=== PATIENT | female | born 1955 | race Caucasian/White ===

== ENCOUNTER 2019-02-21 11:34 | Emergency (ER) | payer OTHER ==
[~2019-02-21 11:34] MED LIST: IBU600 PO; LISI20TA29 PO; METF-450 PO; NO ROUTINE MEDS
--- NOTE | 2019-02-21 11:43 | ER Report ---
History and Physical Time Seen By MD: 11:43 Hx. of Stated Complaint: SHARP PAIN IN EPIGASTRIC AREA THAT LASTS ON MIN THEN SUBSIDES. ACCOMPANIED WITH NAUSEA HPI/ROS CHIEF COMPLAINT: Abdominal pain HISTORY OF PRESENT ILLNESS: 63-year-old female patient presents to emergency room with complaint of abdominal pain. Patient states the pain seems to be in the upper abdomen. Patient states this started about 5:30 this morning seems to radiate right across the abdomen. She denies any vomiting, but states she has been nauseated and has not had any diarrhea. Patient has not taken any medication for this. She states she's not had anything to eat or drink today. She states pain seems more of a crampy intermittent pain. States the pain is there that is pretty significant interval last upwards of a minute. REVIEW OF SYSTEMS: Respiratory: No cough, no dyspnea. Cardiovascular: No chest pain, no palpitations. Gastrointestinal: As noted above Musculoskeletal: No back pain. Allergies: Coded Allergies: hydrocodone (Verified Allergy, Intermediate, ITCHING, 02/21/19) Home Meds Active Scripts Ondansetron 4 Mg Odt (ONDANSETRON 4 MG ODT) 4 Mg Tab.rapdis, 4 MG PO Q6H PRN for NAUSEA/VOMITING, #20 TAB Prov:RON MAYORGA [facility] 02/21/19 Oxycodone Hcl/Acetaminophen (PERCOCET 5-325 MG TABLET) 1 Each Tablet, 1 EACH PO Q4-6H PRN for PAIN, #10 TAB Prov:RON MAYORGA [facility] 02/21/19 Amoxicillin/Pot Clav 875-125 Mg Tab (AUGMENTIN 875-125 TABLET) 1 Each Tablet, 1 TAB PO Q12H, #20 TAB Prov:RON MAYORGA [facility] 02/21/19 Reported Medications Canagliflozin/Metformin HCl (Invokamet 50-1,000 mg Tablet) 1 Each Tablet, 50 MG PO 02/21/19 Lisinopril (LISINOPRIL) 20 Mg Tablet, 20 MG PO QDAY, TAB 02/12/17 Metformin Hcl (METFORMIN HCL) 500 Mg Tablet, 2 TAB PO BID, TAB 02/12/17 Past Medical/Surgical History Patient has a past medical history of migraines, gallstones, arthritis, diabetes, alcohol use. Patient has a surgical history of knee surgery, carpal tunnel release, LASIK eye surgery. Reviewed Nurses Notes: Yes Hx Smoking: No Smoking Status: Never Smoker Hx Alcohol Use: Yes Constitutional Vital Sign - Last 24 Hours 02/21/19 02/21/19 02/21/19 02/21/19 11:38 12:00 13:00 13:05 Temp 97.6 Pulse 80 66 68 67 Resp 18 B/P (MAP) 145/84 134/75 (94) 114/66 (82) Pulse Ox 93 98 96 96 02/21/19 13:29 Pulse 66 B/P (MAP) 111/68 (82) Pulse Ox 94 Physical Exam General Appearance: The patient is alert, has no immediate need for airway protection and no current signs of toxicity. Respiratory: Chest is non tender, lungs are clear to auscultation. Cardiac: regular rate and rhythm Gastrointestinal: Abdomen is soft and tender in the right lower quadrant, no masses, bowel sounds are hypoactive. Musculoskeletal: Neck: Neck is supple and non tender. Extremities have full range of motion and are non tender. Skin: No rashes or lesions. DIFFERENTIAL DIAGNOSIS: After history and physical exam differential diagnosis was considered for abdominal pain including but not limited to appendicitis, cholecystitis, gastritis and urinary tract infection. Medical Decision Making Data Points Result Diagram: 02/21/19 1149 02/21/19 1149 Laboratory Hematology Test 02/21/19 11:39 02/21/19 11:49 Urine Color Yellow Urine Clarity Clear Urine pH 5.0 pH (4.8-9.5) Urine Specific D[place] 1.026 Urine Protein Negative mg/dL (NEGATIVE) Urine Glucose (UA) 500 mg/dL (NEGATIVE) Urine Ketones Trace mg/dL (NEGATIVE) Urine Blood Negative (NEGATIVE) Urine Nitrite Negative (NEGATIVE) Urine Bilirubin Negative (NEGATIVE) Urine Urobilinogen Negative mg/dL (0.2-1.9) Urine Leukocyte Esterase Moderate (NEGATIVE) Urine RBC 5 /HPF (0-2/HPF) Urine WBC 23 /HPF (0-5/HPF) Urine Squamous Epithelial Cells Many /LPF (</=FEW) Urine Bacteria Negative /HPF (NONE-FEW) Urine Mucus Few /HPF (NONE-FEW) Red Blood Count 5.24 M/uL (4.17-5.56) Mean Corpuscular Volume 86.8 fL (80.0-96.0) Mean Corpuscular Hemoglobin 28.9 pg (26.0-33.0) Mean Corpuscular Hemoglobin Concent 33.4 g/dL (32.0-36.0) Red Cell Distribution Width 14.8 % (11.5-14.5) Mean Platelet Volume 9.2 fL (7.2-11.1) Neutrophils (%) (Auto) 79.3 % (39.4-72.5) Lymphocytes (%) (Auto) 13.8 % (17.6-49.6) Monocytes (%) (Auto) 5.8 % (4.1-12.4) Eosinophils (%) (Auto) 0.6 % (0.4-6.7) Basophils (%) (Auto) 0.5 % (0.3-1.4) Nucleated RBC Relative Count (auto) 0.0 /100WBC Neutrophils # (Auto) 9.2 K/uL (2.0-7.4) Lymphocytes # (Auto) 1.6 K/uL (1.3-3.6) Monocytes # (Auto) 0.7 K/uL (0.3-1.0) Eosinophils # (Auto) 0.1 K/uL (0.0-0.5) Basophils # (Auto) 0.1 K/uL (0.0-0.1) Nucleated RBC Absolute Count (auto) 0.00 K/uL Sodium Level 135 mmol/L (137-145) Potassium Level 4.6 mmol/L (3.5-5.0) Chloride Level 102 mmol/L (98-107) Carbon Dioxide Level 24 mmol/L (22-31) Blood Urea Nitrogen 19 mg/dl (7-18) Creatinine 0.80 mg/dl (0.52-1.04) Glomerular Filtration Rate Calc > 60.0 Random Glucose 156 mg/dl (75-110) Calcium Level 9.9 mg/dl (8.4-10.2) Total Bilirubin 1.3 mg/dl (0.2-1.3) Aspartate Amino Transf (AST/SGOT) 45 U/L (0-35) Alanine Aminotransferase (ALT/SGPT) 75 U/L (0-56) Alkaline Phosphatase 86 U/L (0-126) C-Reactive Protein 1.0 mg/dl (<1.0) Total Protein 8.2 g/dl (6.3-8.2) Albumin 4.5 g/dl (3.5-5.0) Amylase Level 60 U/L (0-110) Lipase 157 U/L (23-300) Chemistry Test 02/21/19 11:39 02/21/19 11:49 Urine Color Yellow Urine Clarity Clear Urine pH 5.0 pH (4.8-9.5) Urine Specific Dight[place] 1.026 Urine Protein Negative mg/dL (NEGATIVE) Urine Glucose (UA) 500 mg/dL (NEGATIVE) Urine Ketones Trace mg/dL (NEGATIVE) Urine Blood Negative (NEGATIVE) Urine Nitrite Negative (NEGATIVE) Urine Bilirubin Negative (NEGATIVE) Urine Urobilinogen Negative mg/dL (0.2-1.9) Urine Leukocyte Esterase Moderate (NEGATIVE) Urine RBC 5 /HPF (0-2/HPF) Urine WBC 23 /HPF (0-5/HPF) Urine Squamous Epithelial Cells Many /LPF (</=FEW) Urine Bacteria Negative /HPF (NONE-FEW) Urine Mucus Few /HPF (NONE-FEW) White Blood Count 11.5 k/uL (4.5-11.0) Red Blood Count 5.24 M/uL (4.17-5.56) Hemoglobin 15.2 g/dL (12.0-16.0) Hematocrit 45.5 % (34.0-47.0) Mean Corpuscular Volume 86.8 fL (80.0-96.0) Mean Corpuscular Hemoglobin 28.9 pg (26.0-33.0) Mean Corpuscular Hemoglobin Concent 33.4 g/dL (32.0-36.0) Red Cell Distribution Width 14.8 % (11.5-14.5) Platelet Count 244 K/uL (150-450) Mean Platelet Volume 9.2 fL (7.2-11.1) Neutrophils (%) (Auto) 79.3 % (39.4-72.5) Lymphocytes (%) (Auto) 13.8 % (17.6-49.6) Monocytes (%) (Auto) 5.8 % (4.1-12.4) Eosinophils (%) (Auto) 0.6 % (0.4-6.7) Basophils (%) (Auto) 0.5 % (0.3-1.4) Nucleated RBC Relative Count (auto) 0.0 /100WBC Neutrophils # (Auto) 9.2 K/uL (2.0-7.4) Lymphocytes # (Auto) 1.6 K/uL (1.3-3.6) Monocytes # (Auto) 0.7 K/uL (0.3-1.0) Eosinophils # (Auto) 0.1 K/uL (0.0-0.5) Basophils # (Auto) 0.1 K/uL (0.0-0.1) Nucleated RBC Absolute Count (auto) 0.00 K/uL Glomerular Filtration Rate Calc > 60.0 Calcium Level 9.9 mg/dl (8.4-10.2) Total Bilirubin 1.3 mg/dl (0.2-1.3) Aspartate Amino Transf (AST/SGOT) 45 U/L (0-35) Alanine Aminotransferase (ALT/SGPT) 75 U/L (0-56) Alkaline Phosphatase 86 U/L (0-126) C-Reactive Protein 1.0 mg/dl (<1.0) Total Protein 8.2 g/dl (6.3-8.2) Albumin 4.5 g/dl (3.5-5.0) Amylase Level 60 U/L (0-110) Lipase 157 U/L (23-300) Urinalysis Test 02/21/19 11:39 Urine Color Yellow Urine Clarity Clear Urine pH 5.0 pH (4.8-9.5) Urine Specific [place] 1.026 Urine Protein Negative mg/dL (NEGATIVE) Urine Glucose (UA) 500 mg/dL (NEGATIVE) Urine Ketones Trace mg/dL (NEGATIVE) Urine Blood Negative (NEGATIVE) Urine Nitrite Negative (NEGATIVE) Urine Bilirubin Negative (NEGATIVE) Urine Urobilinogen Negative mg/dL (0.2-1.9) Urine Leukocyte Esterase Moderate (NEGATIVE) Urine RBC 5 /HPF (0-2/HPF) Urine WBC 23 /HPF (0-5/HPF) Urine Squamous Epithelial Cells Many /LPF (</=FEW) Urine Bacteria Negative /HPF (NONE-FEW) Urine Mucus Few /HPF (NONE-FEW) EKG/Imaging Imaging CT abdomen and pelvis with IV contrast Indication: Abdominal pain Comparison: None available. . Technique: Axial CT images were obtained through the abdomen and pelvis during injection of nonionic iodinated intravenous contrast. Reformatted coronal and sagittal images were also obtained. One of the following dose optimization techniques was utilized in the performance of this exam: Automated exposure control; adjustment of the mA and/or kV according to the patient's size; or use of an iterative reconstruction technique. Specific details can be referenced in the facility's radiology CT exam operational policy. Contrast: 85 ml of Isovue-370 IV contrast. Findings: Lower lung thakur: Limited views lower lung field are unremarkable. Liver: No focal parenchymal abnormality of the liver. Biliary: There is a large stone is seen posteriorly towards the medial body of the gallbladder/neck. No wall thickening or adjacent inflammatory change Pancreas: Normal appearance. Spleen: Normal appearance. Adrenal glands: Unremarkable. Kidneys / retroperitoneum: No evidence of nephrolithiasis or hydronephrosis Bowel / peritoneum / mesenteries: Diverticulosis coli is seen pancolonic lead. There is a subtle amount of fluid adjacent to the descending colon which may represent a region of acute diverticulitis. Similar findings are seen adjacent to the diverticular change in the sigmoid colon. There are there is a long segment of ileum spanning the lower abdominal cavity extending into the right upper quadrant that demonstrates circumferential low- density wall thickening with adjacent periintestinal stranding. The finding is indicative of infectious or inflammatory enteritis. There is no evidence of a drainable fluid collection, free air or abscess. Lymph node assessment: No pathologic adenopathy identified. Pelvic structures: Within normal limits Vessels: No significant atherosclerotic calcifications seen throughout a nonaneurysmal abdominal aorta and branches. Musculoskeletal / Body wall: No acute or aggressive osseous abnormality. IMPRESSION: 1. There is a long segment, circumferential low-density wall thickening with adjacent hyperemia and periintestinal stranding surrounding the ileum indicative of infectious or inflammatory enteritis. 2. Mild islas diverticulosis coli with more extensive diverticular changes of the descending and sigmoid colon. There are subtle areas of pericolonic fluid stranding associated with the descending colon and sigmoid colon which could represent acute diverticulitis. Additionally, this could be layering fluid from the visualized acute small bowel pathology. Results were called to Dr. RON MAYORGA at 02/21/2019 12:51 PM. Report Dictated By: Fortino Meade MD at 02/21/2019 12:42 PM Report E-Signed By: Fortino Meade MD at 02/21/2019 12:52 PM ED Course/Re-evaluation ED Course Patient was admitted on exam room, history and physical were obtained. Differential diagnoses were considered. On examination lungs are clear, heart is regular, abdomen is soft and tender in the epigastric region as well as the right lower quadrant. An IV was started, CBC, CMP, urinalysis, CT scan of abdomen and pelvis were done. Patient had a very slight elevated white count 11.5. CT scan showed thickening of the small intestine consistent with an enteritis. I discussed the findings with the patient and her . I believe that we are likely looking at an enteritis which is causing her discomfort. We will go ahead and get her started on antibiotics. She is to limit her activity by pain, she is to increase her fluid intake. She is return to emergency room if condition worsens. Patient verbalized understanding and agreement with plan. Decision to Disposition Date: February 21, 2019 Decision to Disposition Time: 13:10 Depart Departure Latest Vital Signs Vital Signs Date Time Temp Pulse Resp B/P (MAP) Pulse Ox O2 Delivery O2 Flow Rate FiO2 02/21/19 13:29 66 111/68 (82) 94 02/21/19 11:38 97.6 18 Impression: Primary Impression: Enteritis Condition: Improved Disposition: HOME OR SELF-CARE Referrals: NICK MEJIA PA-C (PCP) New Scripts Ondansetron 4 Mg Odt (ONDANSETRON 4 MG ODT) 4 Mg Tab.rapdis 4 MG PO Q6H PRN for NAUSEA/VOMITING, #20 TAB Prov: RON MAYORGA 02/21/19 Oxycodone Hcl/Acetaminophen (PERCOCET 5-325 MG TABLET) 1 Each Tablet 1 EACH PO Q4-6H PRN for PAIN, #10 TAB Prov: RON MAYORGA 02/21/19 Amoxicillin/Pot Clav 875-125 Mg Tab (AUGMENTIN 875-125 TABLET) 1 Each Tablet 1 TAB PO Q12H, #20 TAB Prov: RON MAYORGA 02/21/19 Patient Instructions: Enteritis (ED) Additional Instructions: Increase fluid intake. Get plenty of rest. Follow up with your primary care provider in the next week. Take the medication as prescribed. Limit activity by pain. Eat things that are gentle on your stomach, clear liquids and complex carbohydrates. Increase fiber in your diet. Return to the ER if condition worsens. RON MAYORGA February 21, 2019 11:43
[2019-02-21] MEDS ORDERED: CANA1TAB2 PO (11:44)
[2019-02-21] MEDS ORDERED: NS(*) 0.9% 1000 ML BAG 1,000 ML IV ONE (11:47)
[2019-02-21] MEDS ORDERED: MORPHINE 2 MG/ML SYR IVP ONE (11:50)
[2019-02-21] MEDS ORDERED: ONDANSETRON 4 MG/2 ML VIAL IVP ONE (11:50)
[2019-02-21 11:58] LABS: PLATELET COUNT, AUTOMATED 244 K/uL (150-450)
[2019-02-21] MEDS ORDERED: IOPAMIDOL 76% 100 ML INFUS BTL 100 ML ONE (12:03)
--- NOTE | 2019-02-21 12:55 | RADIOLOGY IMAGING REPORT ---
FACILITY: [facility] - [place], [place] PATIENT NAME: María Meza : 1955 MR: [id number] V: [id number] EXAM DATE: ORDERING PHYSICIAN: RON MAYORGA TECHNOLOGIST: Location: [facility] Patient: María Meza : 1955 Visit/Account:[id number] Date of Sevice: 02/21/2019 CT abdomen and pelvis with IV contrast Indication: Abdominal pain Comparison: None available. . Technique: Axial CT images were obtained through the abdomen and pelvis during injection of nonioni c iodinated intravenous contrast. Reformatted coronal and sagittal images were also obtained. One of the following dose optimization techniques was utilized in the performance of this exam: Automated ex posure control; adjustment of the mA and/or kV according to the patient's size; or use of an iterativ e reconstruction technique. Specific details can be referenced in the facility's radiology CT exam operational policy. Contrast: 85 ml of Isovue-370 IV contrast. Findings: Lower lung thakur: Limited views lower lung field are unremarkable. Liver: No focal parenchymal abnormality of the liver. Biliary: There is a large stone is seen posteriorly towards the medial body of the gallbladder/neck. No wall thickening or adjacent inflammatory change Pancreas: Normal appearance. Spleen: Normal appearance. Adrenal glands: Unremarkable. Kidneys / retroperitoneum: No evidence of nephrolithiasis or hydronephrosis Bowel / peritoneum / mesenteries: Diverticulosis coli is seen pancolonic lead. There is a subtle amou nt of fluid adjacent to the descending colon which may represent a region of acute diverticulitis. Si milar findings are seen adjacent to the diverticular change in the sigmoid colon. There are there is a long segment of ileum spanning the lower abdominal cavity extending into the rig ht upper quadrant that demonstrates circumferential low-density wall thickening with adjacent periint estinal stranding. The finding is indicative of infectious or inflammatory enteritis. There is no dinh dence of a drainable fluid collection, free air or abscess. Lymph node assessment: No pathologic adenopathy identified. Pelvic structures: Within normal limits Vessels: No significant atherosclerotic calcifications seen throughout a nonaneurysmal abdominal aort a and branches. Musculoskeletal / Body wall: No acute or aggressive osseous abnormality. IMPRESSION: 1. There is a long segment, circumferential low-density wall thickening with adjacent hyperemia and p eriintestinal stranding surrounding the ileum indicative of infectious or inflammatory enteritis. 2. Mild islas diverticulosis coli with more extensive diverticular changes of the descending and sigmoi d colon. There are subtle areas of pericolonic fluid stranding associated with the descending colon a nd sigmoid colon which could represent acute diverticulitis. Additionally, this could be layering flu id from the visualized acute small bowel pathology. Results were called to Dr. RON MAYORGA at 02/21/2019 12:51 PM. Report Dictated By: Fortino Meade MD at 02/21/2019 12:42 PM Report E-Signed By: Fortino Meade MD at 02/21/2019 12:52 PM WSN:[id number]
[2019-02-21] MEDS ORDERED: AMOX-559 PO (13:14)
[2019-02-21] MEDS ORDERED: ONDA4TAB9 PO (13:14)
[2019-02-21] MEDS ORDERED: OXYC-865 PO (13:14)
[2019-02-21 13:29] VITALS: BP 111/68
== END 2019-02-21 13:29 | disposition home or self-care (01) ==
LOC: ER 11:39
DX: K52.9 Noninfective gastroenteritis and colitis, unspecified (principal)
CPT/HCPCS: 74177; 81001; 82150; 83690; 85025; 86140; 87088; 96361; 96374; 96375; 99284; J2270; J2405; J7030; Q9967; 82040; 82247; 82310; 82374; 82435; 82565; 82947; 84075; 84132; 84155; 84295; 84450; 84460; 84520